=== PATIENT | male | born 1980 | race Caucasian/White ===

== ENCOUNTER 2019-05-27 06:23 | Emergency (ER) | payer OTHER ==
[~2019-05-27] VITALS: Ht 177.8 cm; Wt 90.7 kg
[2019-05-27] MEDS ORDERED: ALLOPURINOL 10100 M1 PO (06:29)
[2019-05-27 07:49] VITALS: BP 128/83
== END 2019-05-27 07:52 | disposition home or self-care (01) ==
LOC: ER 06:23
DX: M79.605 Pain in left leg (principal); M10.9 Gout, unspecified; Z86.718 Personal history of other venous thrombosis and embolism; Z98.890 Other specified postprocedural states